=== PATIENT | male | born 1950 | race Hispanic/Latino ===

== ENCOUNTER 2024-02-23 14:08 | Inpatient (IN) | payer MEDICARE, OTHER ==
[~2024-02-23] VITALS: Ht 170.2 cm; Wt 64.5 kg
[2024-02-23] MEDS: LEVOFLOXACIN 500 MG/D5W 100 ML 100 ML IV SCH
[2024-02-23 15:30] LABS: BASOPHILS # (AUTO) 0.01 K/uL (0.00-0.20); BASOPHILS % (AUTO) 0.2 % (0.0-5.0); EOSINOPHILS # (AUTO) 0.06 K/uL (0.00-0.70); EOSINOPHILS % (AUTO) 1.1 % (0.0-8.0); IMMATURE GRANULOCYTE ABSOLUTE 0.03 K/uL (0-1); LYMPHOCYTES # (AUTO) 0.2 K/uL (1.0-4.8); LYMPHOCYTES % (AUTO) 4.3 % (21.0-51.0); MEAN CORPUSCULAR HEMOGLOBIN 30.8 pg (27.0-33.0); MEAN CORPUSCULAR HGB CONC 34.9 g/dL (32.0-36.0); MEAN CORPUSCULAR VOLUME 88.2 fL (79-99); MONOCYTES # (AUTO) 0.1 K/uL (0.1-1.0); MONOCYTES % (AUTO) 1.8 % (3.0-13.0); NEUTROPHILS # (AUTO) 5.1 K/uL (1.8-7.7); NEUTROPHILS % (AUTO) 92.1 % (40.0-77.0); PLATELET COUNT (AUTO) 102 K/uL (130-400); RED BLOOD CELL COUNT(AUTO) 4.65 MIL/uL (4.50-6.20); RED CELL DISTRIBUTION WIDTH 12.5 % (11.0-15.5); WHITE BLOOD COUNT (AUTO) 5.6 K/uL (4.8-10.8)
[2024-02-23 15:34] LABS: CREATININE 1.1 mg/dL (0.5-1.3); POTASSIUM 3.3 mmol/L (3.5-5.1)
[2024-02-23 15:50] LABS: SARS-CoV-2, RNA, NAAT NEGATIVE SARS CoV-2 (NEGATIVE)
[2024-02-23 15:56] LABS: INFLUENZA TYPE A Negative For Type A (NEGATIVE); INFLUENZA TYPE B Negative For Type B (NEGATIVE)
[2024-02-23 16:01] LABS: APPEARANCE,URINE CLEAR (CLEAR); BILIRUBIN,URINE NEGATIVE (NEGATIVE); COLOR,URINE LIGHT-YELLOW (YELLOW); GLUCOSE, URINE (UA) NEGATIVE (NEGATIVE); KETONES,URINE NEGATIVE (NEGATIVE); LEUKOCYTE ESTERASE ,URINE NEGATIVE Leu/uL (NEGATIVE); NITRATE,URINE NEGATIVE (NEGATIVE); PROTEIN,URINE NEGATIVE (NEGATIVE); UROBILINOGEN,URINE 0.2 mg/dL (0.2-1.0)
[2024-02-23 16:03] LABS: ADD UA MICROSCOPIC YES
[2024-02-23 16:04] LABS: MUCUS,URINE RARE LPF (None Seen); RBC,URINE 0-1 /HPF (0-1); SQUAMOUS EPITHELIAL CELL,UR RARE /HPF (0-2); WBC,URINE 0-1 /HPF (0-1)
[2024-02-23] MEDS: ACETAMINOPHEN 325 MG TAB PO ONE (16:17)
[2024-02-23] MEDS: 0.9%NACL 1000ML 1,000 ML IV ONE ×2 (16:17→17:13)
[2024-02-23] MEDS: POTASSIUM BICARB/CIT AC 25 MEQ TABLET.EFF PO ONE (16:56)
[2024-02-23] MEDS ORDERED: MORPHINE 4 MG SYG IV PRN (19:00)
[2024-02-23] MEDS ORDERED: MAGNESIUM 2GM PREMIX 50ML 50 ML IV PRN (19:00)
[2024-02-23] MEDS ORDERED: ONDANSETRON 4MG INJ IV PRN (19:00)
[2024-02-23] MEDS ORDERED: POTASSIUM CHLORIDE 20MEQ/100ML 100 ML IV PRN (19:00)
[2024-02-23] MEDS: LACTATED RINGERS 1000ML 1,983 ML IV ONE (19:08)
[2024-02-23] MEDS ORDERED: AMLO-257 PO (20:20)
[2024-02-23] MEDS ORDERED: LOSA100T59 PO (20:20)
[2024-02-23] MEDS ORDERED: LEVO25TA54 PO (20:21)
[2024-02-23] MEDS ORDERED: ROSU40TA70 PO (20:21)
[2024-02-23] MEDS ORDERED: BRIN15DR4 OP (20:22)
[2024-02-23] MEDS ORDERED: PANT40TA54 PO (20:22)
[2024-02-23] MEDS ORDERED: CYAN-35 PO (20:23)
[2024-02-23] MEDS ORDERED: BRIM5DRO21 OP (20:23)
[2024-02-23] MEDS ORDERED: ALBU18HF7 IH (20:24)
[2024-02-23] MEDS: POTASSIUM CHLORIDE 10% ELIXIR 20 MEQ/15 ML UDCUP PO PRN (22:40)
[2024-02-23 23:25] VITALS: BP 113/82; PULSE 64; RESP 18
[2024-02-24] VITALS (9 sets, daily range): BP systolic 101–129; BP diastolic 58–76; PULSE 57–74; RESP 18; TEMP 102.9; O2SAT 97–100
[2024-02-24] MEDS: ACETAMINOPHEN 325 MG TAB PO PRN (03:15)
[2024-02-24 04:48] LABS: BASOPHILS # (AUTO) 0.01 K/uL (0.00-0.20); BASOPHILS % (AUTO) 0.1 % (0.0-5.0); EOSINOPHILS # (AUTO) 0.02 K/uL (0.00-0.70); EOSINOPHILS % (AUTO) 0.2 % (0.0-8.0); HEMATOCRIT 36.3 % (42-54); IMMATURE GRANULOCYTE ABSOLUTE 0.05 K/uL (0-1); LYMPHOCYTES # (AUTO) 0.4 K/uL (1.0-4.8); LYMPHOCYTES % (AUTO) 3.9 % (21.0-51.0); MEAN CORPUSCULAR HEMOGLOBIN 29.9 pg (27.0-33.0); MEAN CORPUSCULAR HGB CONC 34.2 g/dL (32.0-36.0); MEAN CORPUSCULAR VOLUME 87.5 fL (79-99); MONOCYTES # (AUTO) 0.7 K/uL (0.1-1.0); MONOCYTES % (AUTO) 6.5 % (3.0-13.0); NEUTROPHILS # (AUTO) 9.2 K/uL (1.8-7.7); NEUTROPHILS % (AUTO) 88.8 % (40.0-77.0); PLATELET COUNT (AUTO) 87 K/uL (130-400); RED BLOOD CELL COUNT(AUTO) 4.15 MIL/uL (4.50-6.20); RED CELL DISTRIBUTION WIDTH 12.9 % (11.0-15.5); WHITE BLOOD COUNT (AUTO) 10.4 K/uL (4.8-10.8)
[2024-02-24 04:58] LABS: CREATININE 1.2 mg/dL (0.5-1.3); MAGNESIUM 1.6 mg/dL (1.80-2.40)
[2024-02-24] MEDS: FAMOTIDINE 20MG TAB PO SCH (09:42)
[2024-02-24] MEDS: ENOXAPARIN SODIUM 40 MG/0.4 ML SYRINGE SQ SCH (09:42)
[2024-02-24] MEDS: MAGNESIUM 2GM PREMIX 50ML 50 ML IV PRN (09:43)
[2024-02-24] MEDS ORDERED: MORPHINE 2 MG SYG IV PRN (15:30)
[2024-02-24] MEDS: AZITHROMYCIN 500MG+NS 250ML 250 ML IVPB SCH (16:49)
[2024-02-24] MEDS: PSYLLIUM SEED 1 EACH PACKET PO SCH (21:02)
[2024-02-24] MEDS: ATORVASTATIN 40 MG TABLET PO SCH (21:02)
[2024-02-25] VITALS (9 sets, daily range): BP systolic 118–145; BP diastolic 50–78; PULSE 57–68; RESP 18–20; O2SAT 97–98
[2024-02-25 03:57] LABS: BASOPHILS # (AUTO) 0.01 K/uL (0.00-0.20); BASOPHILS % (AUTO) 0.1 % (0.0-5.0); EOSINOPHILS # (AUTO) 0.07 K/uL (0.00-0.70); EOSINOPHILS % (AUTO) 0.9 % (0.0-8.0); HEMATOCRIT 36.8 % (42-54); IMMATURE GRANULOCYTE ABSOLUTE 0.04 K/uL (0-1); LYMPHOCYTES % (AUTO) 13.3 % (21.0-51.0); MEAN CORPUSCULAR HGB CONC 33.2 g/dL (32.0-36.0); MEAN CORPUSCULAR VOLUME 90.4 fL (79-99); MONOCYTES # (AUTO) 0.9 K/uL (0.1-1.0); MONOCYTES % (AUTO) 12.2 % (3.0-13.0); NEUTROPHILS # (AUTO) 5.4 K/uL (1.8-7.7); PLATELET COUNT (AUTO) 79 K/uL (130-400); RED BLOOD CELL COUNT(AUTO) 4.07 MIL/uL (4.50-6.20); RED CELL DISTRIBUTION WIDTH 12.7 % (11.0-15.5); WHITE BLOOD COUNT (AUTO) 7.5 K/uL (4.8-10.8)
[2024-02-25 04:03] LABS: INR 0.96 (0.85-1.15); PROTHROMBIN TIME 11.4 SEC (9.6-11.6)
[2024-02-25 04:04] LABS: PARTIAL THROMBOPLASTIN TIME 31.3 SEC (26.3-35.5)
[2024-02-25 05:48] LABS: ALBUMIN 2.9 g/dL (3.5-5.0); PHOSPHORUS 2.4 mg/dL (2.5-4.9); POTASSIUM 3.7 mmol/L (3.5-5.1)
[2024-02-25] MEDS: LEVOTHYROXINE 25 MCG TABLET PO SCH (05:51)
[2024-02-25 05:56] LABS: BILIRUBIN,TOTAL 0.7 mg/dL (0.2-1.0); MAGNESIUM 1.9 mg/dL (1.80-2.40); TOTAL PROTEIN, SERUM 5.7 g/dL (6.0-8.3)
[2024-02-25] MEDS: KCL 20 MEQ ERTAB PO PRN (06:32)
[2024-02-25] MEDS: PSYLLIUM SEED 1 EACH PACKET PO SCH (08:59)
[2024-02-25] MEDS: DOCUSATE SODIUM 100 MG CAP PO ONE (08:59)
[2024-02-26 03:26] LABS: BASOPHILS # (AUTO) 0.02 K/uL (0.00-0.20); BASOPHILS % (AUTO) 0.3 % (0.0-5.0); EOSINOPHILS # (AUTO) 0.19 K/uL (0.00-0.70); EOSINOPHILS % (AUTO) 3.2 % (0.0-8.0); HEMATOCRIT 36.4 % (42-54); IMMATURE GRANULOCYTE ABSOLUTE 0.01 K/uL (0-1); LYMPHOCYTES % (AUTO) 15.9 % (21.0-51.0); MEAN CORPUSCULAR HEMOGLOBIN 29.3 pg (27.0-33.0); MEAN CORPUSCULAR HGB CONC 33.5 g/dL (32.0-36.0); MEAN CORPUSCULAR VOLUME 87.5 fL (79-99); MONOCYTES # (AUTO) 0.8 K/uL (0.1-1.0); MONOCYTES % (AUTO) 12.6 % (3.0-13.0); NEUTROPHILS % (AUTO) 67.8 % (40.0-77.0); PLATELET COUNT (AUTO) 90 K/uL (130-400); RED BLOOD CELL COUNT(AUTO) 4.16 MIL/uL (4.50-6.20); RED CELL DISTRIBUTION WIDTH 12.7 % (11.0-15.5)
[2024-02-26 03:33] VITALS: BP 132/70; PULSE 65; RESP 18
[2024-02-26 03:42] LABS: BILIRUBIN,TOTAL 0.7 mg/dL (0.2-1.0); CREATININE 1.1 mg/dL (0.5-1.3)
[2024-02-26 07:29] VITALS: BP 135/71; PULSE 59; RESP 18
[2024-02-26 07:45] VITALS: O2SAT 98
[2024-02-26 12:00] VITALS: BP 142/79; PULSE 59; RESP 18
[2024-02-26] MEDS: ACETAMINOPHEN 325 MG TAB PO PRN (12:10)
== END 2024-02-26 13:58 | disposition home or self-care (01) | DRG 868 ==
LOC: EDH 14:08 → EDHIP 18:43 → 2AH 23:15
PROVIDERS: ADMIT Internal Medicine; ATTEND Internal Medicine
DX: A75.2 Typhus fever due to Rickettsia typhi (principal); T67.01XA Heatstroke and sunstroke, initial encounter; I10 Essential (primary) hypertension; E03.9 Hypothyroidism, unspecified; E78.00 Pure hypercholesterolemia, unspecified; E86.0 Dehydration; E87.6 Hypokalemia; I95.9 Hypotension, unspecified; Z20.822 Contact with and (suspected) exposure to COVID-19; X30.XXXA Exposure to excessive natural heat, initial encounter; Z51.5 Encounter for palliative care; Z88.1 Allergy status to other antibiotic agents
CPT/HCPCS: 36415; 71045; 80048; 80053; 81001; 82550; 83605; 83735; 83880; 84100; 84145; 84484; 85025; 85610; 85730; 86757; 87040; 87635; 87804; 93005; G0378; J0456; J1650; J1956; J3475; J7030

== ENCOUNTER 2024-02-27 18:00 | Emergency (ER) | payer MEDICARE ==
[~2024-02-27] VITALS: Ht 170.2 cm; Wt 63.5 kg
[~2024-02-27 18:00] MED LIST: ALBU18HF7 IH; AMLO-257 PO; BRIM5DRO21 OP; BRIN15DR4 OP; CYAN-35 PO; LEVO25TA54 PO; LOSA100T59 PO; PANT40TA54 PO; ROSU40TA70 PO
[2024-02-27 18:58] LABS: COVID19 (SARS ANTIGEN RAPID) PRESUMPTIVE NEGATIVE (NEGATIVE); INFLUENZA TYPE A Negative For Type A (NEGATIVE); INFLUENZA TYPE B Negative For Type B (NEGATIVE)
[2024-02-27 19:00] VITALS: TEMP 99.5
[2024-02-27] MEDS: ACETAMINOPHEN 500 MG TABLET PO STA (19:00)
[2024-02-27 21:16] VITALS: BP 132/65; PULSE 71; RESP 18; O2SAT 97
== END 2024-02-27 21:19 | disposition home or self-care (01) ==
LOC: EDH 18:00
DX: B34.9 Viral infection, unspecified (principal); K21.9 Gastro-esophageal reflux disease without esophagitis; E78.00 Pure hypercholesterolemia, unspecified; I10 Essential (primary) hypertension; Z20.822 Contact with and (suspected) exposure to COVID-19
CPT/HCPCS: 71045; 87426; 87804

== ENCOUNTER 2025-08-18 12:49 | Emergency (ER) | payer MEDICARE ==
[~2025-08-18] VITALS: Ht 170.2 cm; Wt 63.5 kg
--- NOTE | 2025-08-18 13:17 | EKG ---
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
[2025-08-18 13:22] LABS: IMMATURE GRANULOCYTE ABSOLUTE 0.02 K/uL (0-1); NUCLEATED RED BLOOD CELLS 0.0 % (0.0-0.19); PLATELET COUNT (AUTO) 147 K/uL (130-400); RED BLOOD CELL COUNT(AUTO) 5.10 MIL/uL (4.50-6.20); RED CELL DISTRIBUTION WIDTH 12.2 % (11.0-15.5); WHITE BLOOD COUNT (AUTO) 7.6 K/uL (4.8-10.8)
[2025-08-18 13:31] LABS: CREATININE 1.0 mg/dL (0.5-1.3); GLOMERULAR FILTR. RATE CALC 79.0 mL/min (>90); GLUCOSE,RANDOM 88.0 mg/dL (70-105); SODIUM SERUM 141.0 mmol/L (136-145); UREA NITROGEN, BLOOD 16.0 mg/dL (7-18)
[2025-08-18 13:43] LABS: APPEARANCE,URINE CLEAR (CLEAR); GLUCOSE, URINE (UA) NEGATIVE (NEGATIVE); LEUKOCYTE ESTERASE ,URINE NEGATIVE Leu/uL (NEGATIVE); NITRATE,URINE NEGATIVE (NEGATIVE); OCCULT BLOOD,URINE NEGATIVE (NEGATIVE)
[2025-08-18 13:44] LABS: ADD UA MICROSCOPIC NO
[2025-08-18] MEDS: 0.9%NACL 1000ML 1,000 ML IV ONE ×2 (13:48→14:36)
--- NOTE | 2025-08-18 14:28 | HMCIMG ---
EXAM: CR Chest, 1 View. CLINICAL HISTORY: cp COMPARISON: None provided. FINDINGS: LUNGS: The lungs show no infiltrate or other acute finding. PLEURAL SPACES: No evidence of pleural effusion or pneumothorax. MEDIASTINUM: The cardiomediastinal silhouette is within normal limits. BONES: No acute osseous abnormality. IMPRESSION: No acute cardiopulmonary pathology is evident. /Sebree
--- NOTE | 2025-08-18 14:29 | ERN ---
General Chief Complaint: Dizzy/Light Headed Stated Complaint: DIZZINESS Time Seen by MD: 13:03 Source: patient History of Present Illness Initial Comments Patient is a 75-year-old male coming in complaining of weakness and dizziness. Per patient he got up in the morning feeling like this. No fever or chills. Allergies: Coded Allergies: Penicillins (Unverified Allergy, Unknown, 02/23/24) metronidazole (Unverified Allergy, Unknown, 02/23/24) tetracycline (Unverified Allergy, Unknown, 02/23/24) Home Meds Reported Medications Albuterol Sulfate (Ventolin Hfa) 90 Mcg Hfa.aer.ad, 18 GM IH AD PRN for RESPIRATORY SYMPTOMS, INHALER 02/23/24 Cyanocobalamin (Vitamin B-12) (Vitamin B-12) 1,000 Mcg Capsule, 1000 MCG PO AM, CAP 02/23/24 Brimonidine Tartrate/Timolol (Brimonidine-Timolol 0.2%-0.5%) 0.2 %-0.5 % Drops, 5 ML OP TID, DROP 02/23/24 Brinzolamide (Brinzolamide) 1 % Drops.susp, 15 ML OP TID, DROP 02/23/24 Pantoprazole Sodium (Pantoprazole Sodium) 40 Mg Tablet.dr, 40 MG PO AM, TAB 02/23/24 Levothyroxine Sodium (Levothyroxine Sodium) 25 Mcg Tablet, 25 MCG PO AM, TAB 02/23/24 Rosuvastatin Calcium (Rosuvastatin Calcium) 40 Mg Tablet, 40 MG PO HS, TAB 02/23/24 Amlodipine Besylate (Amlodipine Besylate) 5 Mg Tablet, 5 MG PO AM, TAB 02/23/24 Losartan Potassium (Losartan Potassium) 100 Mg Tablet, 100 MG PO AM, TAB 02/23/24 Past Medical History Past Medical History: GERD, High Cholesterol, Hypertension, Other Medical History Other: RETINAL EYE OCCLUSION Past Surgical History: None Results Laboratory and Microbiology Lab and Micro Result Laboratory Tests Test 08/18/25 13:12 08/18/25 13:27 White Blood Count 7.6 K/uL (4.8-10.8) Red Blood Count 5.10 MIL/uL (4.50-6.20) Hemoglobin 15.3 g/dL (14.0-18.0) Hematocrit 45.1 % (42-54) Mean Corpuscular Volume 88.4 fL (79-99) Mean Corpuscular Hemoglobin 30.0 pg (27.0-33.0) Mean Corpuscular Hemoglobin Concent 33.9 g/dL (32.0-36.0) Red Cell Distribution Width 12.2 % (11.0-15.5) Platelet Count 147 K/uL (130-400) Mean Platelet Volume 10.5 fL (7.5-10.5) Immature Granulocyte % (Auto) 0.3 % (0-1) Neutrophils (%) (Auto) 69.7 % (40.0-77.0) Lymphocytes (%) (Auto) 17.0 % (21.0-51.0) L Monocytes (%) (Auto) 8.4 % (3.0-13.0) Eosinophils (%) (Auto) 4.1 % (0.0-8.0) Basophils (%) (Auto) 0.5 % (0.0-5.0) Neutrophils # (Auto) 5.3 K/uL (1.8-7.7) Lymphocytes # (Auto) 1.3 K/uL (1.0-4.8) Monocytes # (Auto) 0.6 K/uL (0.1-1.0) Eosinophils # (Auto) 0.31 K/uL (0.00-0.70) Basophils # (Auto) 0.04 K/uL (0.00-0.20) Absolute Immature Granulocyte (auto 0.02 K/uL (0-1) Nucleated Red Blood Cells 0.0 % (0.0-0.19) Sodium Level 141 mmol/L (136-145) Potassium Level 4.0 mmol/L (3.5-5.1) Chloride Level 105 mmol/L (101-111) Carbon Dioxide Level 28 mmol/L (21-32) Blood Urea Nitrogen 16 mg/dL (7-18) Creatinine 1.0 mg/dL (0.5-1.3) Glomerular Filtration Rate Calc 79 mL/min (>90) Random Glucose 88 mg/dL (70-105) Total Calcium 9.2 mg/dL (8.5-10.1) Magnesium Level 2.10 mg/dL (1.80-2.40) Troponin I High Sensitivity 6 ng/L (4-75) Urine Color LIGHT-YELLOW (YELLOW) Urine Appearance CLEAR (CLEAR) Urine pH 5.5 (5.0-8.0) Urine Specific [place] 1.012 (1.001-1.031) Urine Protein NEGATIVE mg/dL (NEGATIVE) Urine Glucose (UA) NEGATIVE mg/dL (NEGATIVE) Urine Ketones NEGATIVE mg/dL (NEGATIVE) Urine Occult Blood NEGATIVE (NEGATIVE) Urine Nitrate NEGATIVE (NEGATIVE) Urine Bilirubin NEGATIVE mg/dL (NEGATIVE) Urine Urobilinogen 0.2 mg/dL (0.2-1.0) Urine Leukocyte Esterase NEGATIVE Vianey/uL Labs Reviewed?: Yes EKG/XRAY/US/CT/MRI EKG Comment 08/18/2025 time 1:11 p.m. Ventricular rate 66 Sinus rhythm [place] [address] wave elevation or [id number] MDM MDM: Differential diagnosis: Dehydration, generalized weakness, Rationale: Tests considered and ordered secondary to shared decision making include: Previous outside records reviewed: Old ER visits. Risk of complication and/or morbidity or mortality of patient management: None Medications-Per medication reconciliation Need for hospitalization: Patient does not meet criteria for hospitalization. Need for emergency major/minor surgery: No Patient is a 75-year-old gentleman coming in complaining of vertigo we will patient states that the symptoms eat. Laboratory workup which he says cardiac workup negative for acute findings. Patient was hydrated with IV fluids states his symptoms have subsided. Patient will be discharge in stable condition with a diagnosis of dehydration. I did advised him appropriate follow up with PCP for ongoing evaluation and management ED Course Orders Procedure Category Date Status Time Cbc With Differential LAB 08/18/25 Complete 13:05 Chest 1vw RAD 08/18/25 Resulted 13:05 12 Lead Ekg Tracing- EKG 08/18/25 Complete Technical 13:05 0.9%Nacl 1000ml (Ns PHA 08/18/25 Complete 1000ml) 13:30 Magnesium LAB 08/18/25 Complete 13:05 Troponin I High LAB 08/18/25 Complete Sensitivity 13:05 Urinalysis Profile LAB 08/18/25 Complete 13:05 Basic Metabolic Panel LAB 08/18/25 Complete 13:05 0.9%Nacl 1000ml (Ns PHA 08/18/25 Complete 1000ml) 14:00 Current Medications Medications (Trade) Dose Ordered Sig/Annamarie Route PRN Reason Start Time Stop Time Status Last Admin Dose Admin Sodium Chloride 1,000 ml @ 0 mls/hr ONCE ONCE IV 08/18/25 13:30 08/18/25 13:31 DC 08/18/25 13:48 Sodium Chloride 1,000 ml @ 0 mls/hr ONCE ONCE IV 08/18/25 14:00 08/18/25 14:01 DC 08/18/25 14:36 Vital Signs Date Time Temp Pulse Resp B/P (MAP) Pulse Ox O2 Delivery O2 Flow Rate FiO2 08/18/25 13:16 97.9 68 18 161/71 98 Room Air* 0 21 08/18/25 12:50 97.3 68 20 164/89 100 Room Air DX & DISP Disposition: Discharge Departure Impression: Primary Impression: Dehydration Condition: Stable Additional Instructions: FOLLOW-UP WITH PRIMARY CARE PROVIDER IN 1 TO 2 DAYS. TAKE MEDICATIONS DIRECTED HERE IN THE EMERGENCY ROOM. OKAY TO CONTINUE HOME MEDICATIONS UNLESS OTHERWISE DISCUSSED DURING YOUR VISIT IN THE EMERGENCY ROOM TODAY. RETURN TO YOUR NEAREST EMERGENCY ROOM IF SYMPTOMS WORSEN OR IF THERE IS NO IMPROVEMENT. CALL 911 IF YOU NEED IMMEDIATE ASSISTANCE. TAKE TYLENOL [id number] NEEDED AND IF NO CONTRAINDICATIONS ARE PRESENT. INCREASE ORAL HYDRATION. A WOUND CULTURE OR URINE CULTURE WAS ORDERED HERE IN THE EMERGENCY ROOM DEPARTMENT PLEASE FOLLOW-UP WITH PRIMARY CARE PROVIDER AND ADVISE THEM TO GET REPORTS FROM OUR FACILITY. IF YOU HAD ANY CEILA WRAP/SPLINTS THAT WERE APPLIED HERE, PLEASE DO NOT REMOVE THEM UNTIL YOU SEE YOUR PRIMARY CARE OR SPECIALTY. REFERRALS: Referrals: JORGE RANDOLPH (PCP) Time of Disposition: 15:04 DIANE MILLARD MD Aug 18, 2025 14:29
[2025-08-18 15:17] VITALS: BP 134/68; PULSE 67; RESP 18; TEMP 97.9; O2SAT 99
== END 2025-08-18 15:55 | disposition home or self-care (01) ==
LOC: EDH 12:49
DX: E86.0 Dehydration (principal); R42 Dizziness and giddiness; E78.00 Pure hypercholesterolemia, unspecified; I10 Essential (primary) hypertension; K21.9 Gastro-esophageal reflux disease without esophagitis; Z88.0 Allergy status to penicillin; Z88.1 Allergy status to other antibiotic agents; Z79.899 Other long term (current) drug therapy
CPT/HCPCS: 99285; 96360; 71045; 83735; 84484; 80048; 85025; 81003; 36415; 93005; J7030 ×2